=== PATIENT | male | born 1945 | race Caucasian/White ===

== ENCOUNTER 2021-07-24 21:08 | Emergency (ER) | payer MEDICARE ==
[2021-07-24 22:39] LABS: CORONAVIRUS COVID-19 NAA NEGATIVE (NEGATIVE); INFLUENZA A NAA NEGATIVE (NEGATIVE); INFLUENZA B NAA NEGATIVE (NEGATIVE)
[2021-07-25 00:35] LABS: BLOOD UREA NITROGEN,BUN 23 mg/dL (7.0-18.0); CARBON DIOXIDE,CO2 27.6 mmol/L (21.0-32.0); CHLORIDE,CL 104 mmol/L (98-107); GLUCOSE RANDOM 120 mg/dL (74-106); POTASSIUM,K 4.3 mmol/L (3.5-5.1); SODIUM,NA 138 mmol/L (136-148)
[2021-07-25] MEDS ORDERED: Azithromycin 250 MG Tab PO STA (00:44)
== END 2021-07-25 01:19 | disposition home or self-care (01) ==
LOC: MW.ED 21:08
DX: J18.9 Pneumonia, unspecified organism (principal); Z20.822 Contact with and (suspected) exposure to COVID-19; Z79.899 Other long term (current) drug therapy
CPT/HCPCS: 0240U; 36415; 71045; 80053; 83605; 84484; 85025; 85610; 93005; 99284; A9270